=== PATIENT | female | born 1940 | race African-American/Black ===

== ENCOUNTER → 2016-10-20 | Outpatient (CLI) | payer MEDICARE, OTHER ==
[2015-03-22 11:40] VITALS: BP 162/87
[~2016-10-20] MED LIST: BRIM5DRO3 EACHEYE; DORZ10DR21 EACHEYE; LOSA50TA6 PO; MULT-650 PO; NIFE60TA16 PO; PANT20TA3 PO; PANT40TA3 PO; PRAV20TA2 PO; SUCR1TAB PO; TRAM50TA PO
--- NOTE | 2016-10-20 15:41 | RAD ---
DATE: 10/20/2016 EXAM: MAMMO LESLEY SCREENING BILATERAL HISTORY: Screening COMPARISON: 08/13/2015 This study was interpreted with the benefit of Computerized Aided Detection (CAD). FINDINGS: Breast Density: SCATTERED The breast parenchyma shows scattered fibroglandular densities. Breast parenchyma level B. There has not been a significant change in the appearance of the breasts compared to the previous exam IMPRESSION: Benign findings BI-RADS CATEGORY: 2 BENIGN FINDING(S) RECOMMENDED FOLLOW-UP: 12M 12 MONTH FOLLOW-UP PQRS compliance statement: Patient information was entered into a reminder system with a target due date 10/20/2017 for the next mammogram. Mammography is a sensitive method for finding small breast cancers, but it does not detect them all and is not a substitute for careful clinical examination. A negative mammogram does not negate a clinically suspicious finding and should not result in delay in biopsying a clinically suspicious abnormality. "Our facility is accredited by the [employer] Mammography [employer]."
== END | disposition home or self-care (01) ==
LOC: MAMMO 09:06
PROVIDERS: ATTEND Family Medicine
DX: Z12.31 Encounter for screening mammogram for malignant neoplasm of breast (principal)
CPT/HCPCS: 77063; G0202; 77067

== ENCOUNTER → 2019-02-18 | Outpatient (CLI) | payer MEDICARE, OTHER ==
[2015-03-22 11:40] VITALS: BP 162/87
[~2019-02-18] MED LIST changes: -LOSA50TA6 PO; +LOSA50TA86 PO
--- NOTE | 2019-02-18 15:15 | RAD ---
EXAM: Dual energy x-ray absorptiometry (DEXA). HISTORY: Postmenopausal female presents for osteoporosis screening. COMPARISON: 09/07/2015. TECHNIQUE: Dual energy x-ray absorptiometry of the lumbar spine and right hip was performed. Calculation of bone mineral density based on standard deviations above or below the expected young adult normal value (T-score) was completed. FINDINGS: The average bone mineral density in the 1st through 4th lumbar vertebrae is 1.395 g/cmxcm, corresponding with a T-score of 1.8. There is been a 1.6% increase in density of the lumbar spine compared to the prior study. The average total bone mineral density in the right hip is 0.803 g/cmxcm, corresponding with a T-score of -1.2. There has been a 3.2% decrease in density of the right hip compared to the prior study. IMPRESSION: 1. Osteopenia measured at the right hip. 2. Normal bone mineral density measured at the lumbar spine. Note: Definitions established by the World Health Organization: 1. Normal: T-score is -1.0 or above. 2. Osteopenia: T-score is between -1.0 and -2.5 . 3. Osteoporosis: T-score is -2.5 or below. Electronically signed by: Jaylin Herrera MD (02/18/2019 3:13 PM) [place] [id number]
--- NOTE | 2019-02-18 15:57 | RAD ---
DATE: 02/18/2019. EXAM: MAMMO LESLEY SCREENING BILATERAL. HISTORY: Routine mammographic screening. COMPARISON: 10/20/2016. This study was interpreted with the benefit of Computerized Aided Detection (CAD). FINDINGS: Breast Density: SCATTERED The breast parenchyma shows scattered fibroglandular densities. Breast parenchyma level B.. Scattered calcifications are benign. There are no suspicious masses, microcalcifications or architectural distortion. The parenchymal pattern is stable. BI-RADS CATEGORY: 2 BENIGN FINDING(S). RECOMMENDED FOLLOW-UP: 12M 12 MONTH FOLLOW-UP. PQRS compliance statement: Patient information was entered into a reminder system with a target due date 02/19/2020 for the next mammogram. Mammography is a sensitive method for finding small breast cancers, but it does not detect them all and is not a substitute for careful clinical examination. A negative mammogram does not negate a clinically suspicious finding and should not result in delay in biopsying a clinically suspicious abnormality. "Our facility is accredited by the [employer] Mammography [employer]."
== END | disposition home or self-care (01) ==
LOC: DXRAD 13:27
PROVIDERS: ATTEND Family Medicine
DX: Z12.31 Encounter for screening mammogram for malignant neoplasm of breast (principal); Z13.820 Encounter for screening for osteoporosis; N64.89 Other specified disorders of breast; M85.88 Other specified disorders of bone density and structure, other site
CPT/HCPCS: 77063; 77067; 77080

== ENCOUNTER → 2021-03-08 | Outpatient (CLI) | payer MEDICARE, OTHER ==
[2015-03-22 11:40] VITALS: BP 162/87
[~2021-03-08] MED LIST changes: -NIFE60TA16 PO; +NIFE60TA90 PO; -PANT20TA3 PO; +PANT20TA4 PO
--- NOTE | 2021-03-08 15:53 | RAD ---
EXAM: DUAL ENERGY X-RAY ABSORPTIOMETRY (DEXA). HISTORY: Postmenopausal screening. FINDINGS: The lowest measured T-score is -1.9 in the right femoral neck, based on a bone mineral dens ity of 0.780 g/cm^2. Refer to the worksheets for full detail. In comparison with the baseline study of 09/07/2015, average bone mineral density at the lumbar spine has changed +2.8%, while the average density at the hips has changed -5.7%. IMPRESSION: Low bone mass. Bone mineral density yields a T-score between -1.0 and -2.5. Fracture risk is increase d. FRAX was not calculated. METHODOLOGY: Dual energy x-ray absorptiometry was performed to measure bone mineral density. The foll owing analysis is based on the 2019 Official Positions of the International Society for Clinical Dens itometry: Measurements of the hips and the average of L1-L4 are preferred. When the spine and/or hip cannot be feasibly measured or interpreted, or in the setting of hyperparathyroidism, distal radial bone minera l density may be measured. The lumbar spine T-score is based on the average bone mineral density of L1-L4. In the setting of art ifact or anatomic abnormality, some lumbar levels may be excluded, and the remaining levels used for calculation. A single lumbar level is not used for diagnosis, and if only a single level is available for assessment, another anatomic site will be used to assign a diagnosis. The hip T-score is based on the bone mineral density measurement of the femoral neck or total proxima l femur of either side, whichever is lowest. Bilateral mean values are not used for diagnosis. The forearm T-score is derived from 33% of the distal radius of the nondominant forearm. For postmenopausal and perimenopausal women, and men age 50 or older, of all ethnic groups, T-scores are calculated through comparison of the current measurement with the NHANES III database standard fo r females aged 20-29 years. The lowest T-score of the evaluated anatomic sites is used to a ssign a diagnosis based on the World Health Organization densitometric classification. In premenopausal females and males younger than age 50, a Z-score is calculated based on population s pecific reference data for patient sex and self-reported ethnicity. Electronically signed by: Sada Odell MD (03/08/2021 3:51 PM) [id number]
--- NOTE | 2021-03-08 16:47 | RAD ---
Bilateral digital screening mammogram to include digital breast tomosynthesis (3-D mammography) 03/08 CLINICAL HISTORY: Screening study. Digital MLO and CC mammograms of both breasts were obtained. Additionally digital breast tomosynthesi s images (3-D mammography) of both breasts in the CC and MLO projections were obtained. Comparison study is dated 02/18/2019. The breast parenchyma is heterogeneously dense which could obscure a lesion on mammography (breast de nsity C). Benign-appearing and vascular calcifications are seen within both breasts. No spiculated ma ss is seen. No malignant appearing calcification or area of architectural distortion is noted. Digital breast tomosynthesis images demonstrate no spiculated mass. No malignant appearing calcificat ion is seen. Impression: BI-RADS Category 1: Negative. There is no mammographic evidence of malignancy. Routine y early screening mammography is recommended for follow-up. This examination was reviewed with the aid of computer-aided detection. A mammogram does not have 100% sensitivity and therefore a negative imaging study should not delay fu rther work up of a suspicious abnormality. Patient information is entered into the reminder system with a target due date for the next screening mammogram of 03/08/2022. "Our facility is accredited by the [employer]ammography [employer]." Electronically signed by: Celestino Seymour MD (03/08/2021 4:44 PM) [facility]
== END ==
LOC: MAMMO 13:50
PROVIDERS: ATTEND Family Medicine
DX: Z12.31 Encounter for screening mammogram for malignant neoplasm of breast (principal); M85.89 Other specified disorders of bone density and structure, multiple sites
CPT/HCPCS: 77063; 77067; 77080

== ENCOUNTER → 2021-08-26 | Day surgery (SDC) | payer MEDICARE, OTHER ==
[~2021-08-26] MED LIST changes: +GABA-585 PO; +GLYCOPYRROLATE 1 MG/5 ML VIAL. ONE; +IPRATRPIUM/ALBUTEROL 0.5/2.5MG 3 ML NEBU. NEB PRN; +IV RINGERS SOLUTION,LACTATED 1,000 ML IV SCH; +LIDOCAINE 2% PF 5 ML VIAL. ONE; +LORA-52 PO; +MIDAZOLAM HCL PF 2 MG/2 ML VIAL. IV ONE; +OMEG1CAP50 PO; +OMEP40CA7 PO; +ONDANSETRON PF 4 MG/2 ML VIAL. IV PRN; +PRAV40TA2 PO; +PROPOFOL 10,000 MCG/ML (20ML) VIAL IV ONE
[2021-08-26 10:59] VITALS: BP 153/85
--- NOTE | 2021-08-31 09:09 | PATHOLOGY ---
[facility] Accession Number: [id number] . 01 Material submitted: . stomach - ANTRUM BIOPSY . 01 Clinical history: . GERD, HX OF POLYP, HEARTBURN . 02 Diagnosis: Gastric biopsies, antrum: - Chronic gastritis, mild. . (JPM:mm; 08/30/2021) [facility] 08/30/2021 1648 Local . 02 Comment: Sections of the gastric biopsy reveal segments of gastric antral and antral/body transition mucosa showing congestion and mild chronic inflammation. . A properly-controlled immunoperoxidase stain for Helicobacter is negative for Helicobacter organisms. . Special stain: Immunoperoxidase stain for Helicobacter on A1 . (JPM:mml; 08/30/2021) . 02 Electronically signed: . Bladimir Balderas MD, Pathologist NPI- [id number] . 01 Gross description: . The specimen is received in formalin, labeled "Sonia Tyler, antrum bx". Received is a single, barahona-pink, soft tissue fragment, measuring 0.5 cm, in greatest dimension. The specimen is entirely submitted in cassette A1. (JGG; 08/29/2021) JGG/JGG 08/29/2021 1803 Local . 02 Pathologist provided ICD-10: K29.50 . 02 CPT . 894696, [id number] Specimen Comment: A courtesy copy of this report has been sent to [phone] Specimen Comment: Report sent to Performed at: [facility] [address] [facility] [address], [place] [id number] MD Jesus Jimenez MD Phone: [phone] Performed at: 02 [facility] [address] [place], [place] [id number] MD Bladimir Balderas MD Phone: [phone]
== END | disposition home or self-care (01) ==
LOC: SURG 08:26
PROVIDERS: ATTEND Internal Medicine Gastroenterology
DX: Z12.11 Encounter for screening for malignant neoplasm of colon (principal); R12 Heartburn; K64.8 Other hemorrhoids; K44.9 Diaphragmatic hernia without obstruction or gangrene; K21.00 Gastro-esophageal reflux disease with esophagitis, without bleeding; E11.9 Type 2 diabetes mellitus without complications; E78.00 Pure hypercholesterolemia, unspecified; K29.50 Unspecified chronic gastritis without bleeding; M19.90 Unspecified osteoarthritis, unspecified site; H40.9 Unspecified glaucoma; E66.9 Obesity, unspecified; Z72.89 Other problems related to lifestyle; Z86.010 Personal history of colon polyps; Z98.49 Cataract extraction status, unspecified eye; Z90.710 Acquired absence of both cervix and uterus; Z98.890 Other specified postprocedural states
CPT/HCPCS: 43239; 82947; G0105; J2001; J2704; J3490; J7120